=== PATIENT | female | born 1955 | race Caucasian/White ===

== ENCOUNTER 2020-04-15 18:58 | Emergency (ER) | payer OTHER ==
[2020-04-15 19:24] VITALS: BP 135/56; PULSE 88; TEMP 98.3; BMI 29.6
--- OUTSIDE RECORDS SUMMARY | 2020-04-15 19:32 | XMS ---
:1955 Author Organization [facility] Support Name Relationship Address Phone SE Unavailable Unavailable Unavailable CARLEY DIOR [address] [place] [address] Re-disclosure Warning The records that you are about to access may contain information from federally- assisted alcohol or drug abuse programs. If such information is present, then the following federally mandated warning applies: This information has been disclosed to you from records protected by federal confidentiality rules (42 CFR part 2). The federal rules prohibit you from making any further disclosure of this information unless further disclosure is expressly permitted by the written consent of the person to whom it pertains or as otherwise permitted by 42 CFR part 2. A general authorization for the release of medical or other information is NOT sufficient for this purpose. The Federal rules restrict any use of the information to criminally investigate or prosecute any alcohol or drug abuse patient.The records that you are about to access may contain highly sensitive health information, the redisclosure of which is protected by Article 27-F of the [facility] Public Health law. If you continue you may haveaccess to information: Regarding HIV / AIDS; Provided by facilities licensed or operated by the [facility] Office of Mental Health; or Provided by the [facility] Office for People With Developmental Disabilities. If such information is present, then the following [facility] mandated warning applies: This information has been disclosed to you from confidential records which are protected by state law. State law prohibits you from making any further disclosure of this information without the specific written consent of the person to whom it pertains, or as otherwise permitted by law. Any unauthorized further disclosure in violation of state law may result in a fine or skilled nursing sentence or both. A general authorization for the release of medical or other information is NOT sufficient authorization for further disclosure. Insurance Providers Payer name Policy type Policy ID Covered Covered libertarian's Policy P liang / Coverage libertarian ID relationship to [employer] SELF PAY SP INSURANCE Results ID Date Data Source [id number] 01/08/2020 06:43:00 PM EDT [facility] Name Value Range Interpretation Code Description Data Jennifer rce(s) Supporting Document(s ) COV2 [facility] This lab was ordered by [facility] and reported by [facility]. ID Date Data Source [id number] 11/20/2019 04:52:00 PM EDT [facility] Name Value Range Interpretation Description Data Sup porting Code Source(s) Document(s ) SARS [facility] CORONAVIRUS 2 RNA This lab was ordered by [facility] and reported by [facility]. Procedure
[2020-04-15] MEDS ORDERED: KETOROLAC TROMETHAMINE 60 MG/2 ML VIAL IM ONE (20:03)
[2020-04-15] MEDS ORDERED: KETOROLAC TROMETHAMINE 60 MG/2 ML VIAL ONE (20:12)
--- NOTE | 2020-04-15 20:12 | PDOC ---
History of Present Illness - General Chief Complaint: Injury Stated Complaint: INJURY Time Seen by Provider: 04/15/20 19:33 - History of Present Illness Initial Comments: 04/15/20 20:04 64-year-old female without comorbidities presents for evaluation of left wrist pain after mechanical fall when she tripped while walking on the sidewalk. No post injury nausea vomiting visual changes or headache. She did not hit her head only left wrist pain. Past History - Medical History Allergies/Adverse Reactions: Allergies Allergy/AdvReac Type Severity Reaction Status Date / Time aspirin Allergy Verified 04/15/20 19:20 Home Medications: Ambulatory Orders No Home Medications 0 dose .ROUTE UTDICT 02/01/12 Diazepam [Valium -] 5 mg PO BID #10 tablet 01/08/14 Naproxen [Naprosyn -] 500 mg PO BID #30 tablet 01/08/14 COPD: No - Surgical History Abdominal Surgery: Yes (ECTOPIC ) - Psycho-Social/Smoking History Smoking Status: No Smoking History: Never smoked Number of Cigarettes Smoked Daily: 0 - Substance Abuse Hx (Audit-C & DAST Scrn) How often the patient has a drink containing alcohol: Never Score: In Men: 4 or > Positive; In Women: 3 or > Positive: 0 Screen Result (Pos requires Nsg. Audit-10AR): Negative Review of Systems - Review of Systems Musculoskeletal: Yes: Joint Pain *Physical Exam - Vital Signs Last Vital Signs Temp Pulse Resp BP Pulse Ox 98.3 F 88 20 135/56 L 98 04/15/20 19:19 04/15/20 19:19 04/15/20 19:19 04/15/20 19:19 04/15/20 19:19 - Physical Exam 04/15/20 20:12 Left wrist skin color and temperature normal tenderness at the DRUJ. No tenderness at the radial or ulnar styloid. Scaphoid nontender mild tenderness at the dorsum of the hand. Decreased range of motion in supination and pronation flexion and extension of the wrist. Elbow shoulder are nontender upper extremity compartments are soft nontender neurovascular intact no gross sensorimotor deficits. ED Treatment Course - RADIOLOGY Radiology Studies Ordered: Category Date Time Status WRIST W/HAND-LEFT* [RAD] Stat Radiology 04/15/20 19:42 Taken Medical Decision Making - Medical Decision Making 04/15/20 20:13 X-ray show no evidence of fracture trauma destructive process DRUJ is slightly widened. Left wrist Sprain. Cock-up wrist applied cock-up wrist splint applied. Follow-up with Ortho Toradol relieved pain in the ER Tylenol Motrin at home. I have reviewed the pathophysiology with the patient. They are in agreement with the treatment plan all questions were answered to their satisfaction. Understanding for follow-up without fail was also conveyed to the patient. Again they are in agreement.. Discharge - Discharge Information Problems reviewed: Yes Clinical Impression/Diagnosis: Left wrist sprain Condition: Stable Disposition: HOME - Admission No - Follow up/Referral Referrals: Baltazar Rivas DO [Staff Physician] - - Patient Discharge Instructions Additional Instructions: Please use the wrist splint for comfort. Remove it for hygiene. Without fail follow-up with orthopedic surgery in 1 to 2 days for further evaluation and treatment options. You were given an injection of a long-acting anti- inflammatory in the emergency room. Avoid anti-inflammatories until tomorrow evening at this time. Only take Tylenol for pain. Tomorrow night you may begin a course of anti-inflammatories as directed by the instructions on the box such as Advil Motrin Aleve or ibuprofen. Return to the emergency room for worsening symptoms and without fail follow-up with orthopedic surgery in 1 to 2 days for further evaluation and treatment options. - Post Discharge Activity
== END 2020-04-15 20:23 | disposition home or self-care (01) ==
LOC: JER 18:58
PROC: 3E0233Z Introduction of Anti-inflammatory into Muscle, Percutaneous Approach (ICD-10-PCS; principal; 2020-04-15)
DX: S63.502A Unspecified sprain of left wrist, initial encounter (principal)
CPT/HCPCS: 73110-TC-LT-FY; 73130-TC-LT-FY; 99284-25

== ENCOUNTER 2024-10-14 13:12 | Emergency (ER) | payer OTHER ==
[2024-10-14 13:41] VITALS: BP 110/59; PULSE 72; RESP 16; TEMP 98; BMI 28.9
== END 2024-10-14 14:22 | disposition home or self-care (01) ==
LOC: JERFT 13:12
DX: L30.9 Dermatitis, unspecified (principal)
CPT/HCPCS: 99283-25